=== PATIENT | female | born 1995 | race Caucasian/White ===

== ENCOUNTER 2021-07-05 12:34 | Outpatient (CLI) | payer BC, OTHER, SELFPAY ==
[2021-07-05 14:40] LABS: Basophils Percent Auto 0.3 % (0.2-1.2); Eosinophils Percent Auto 0.6 % (0-4.4); Hematocrit 36.4 % (37.0-47.0); Hemoglobin 12.8 g/dL (12.0-15.0); Immature Granulocyte Absolute 0.04 K/mm3 (0.00-0.031); Immature Granulocyte Percent A 0.6 % (0-0.5); Lymphocytes Absolute Auto 1.41 K/mm3 (0.9-3.2); Lymphocytes Percent Auto 22.2 % (18.3-44.2); Mean Corpuscular HGB Conc 35.2 g/dl (32-36); Mean Corpuscular Hemoglobin 31.1 pg (26-34); Mean Corpuscular Volume 88.6 fl (80-100); Mean Platelet Volume 12.7 fl (7.4-10.4); Monocytes Absolute Auto 0.3 K/mm3 (0.1-0.6); Monocytes Percent Auto 5.4 % (2.6-8.5); Neutrophils Absolute Auto 4.5 K/mm3 (1.3-6.7); Neutrophils Percent Auto 70.9 % (45.5-73.1); Platelet Count Result 178 k/mm3 (150-375); Red Blood Count 4.11 M/mm3 (4.2-5.4); Red Cell Distribution Width 12.6 % (11.5-14.5); White Blood Count 6.3 K/mm3 (4.5-10.0)
[2021-07-05 15:50] LABS: Hepatitis B Surface Antigen Negative (Negative); Rubella IgG Antibody 27.8 IU/ML
[2021-07-05 15:50] LABS: HIV 1/2 Ab P24 Ag Result Negative (Negative)
[2021-07-06 06:02] LABS: Rapid Plasma Reagin Non-Reactive (NonReactive)
[2021-07-07 09:28] LABS: CMV IgG Antibody <0.60 U/mL (<0.60)
[2021-07-16 18:20] LABS: CF Result NEGATIVE (NEGATIVE); Ethnicity NG
[2021-07-26 07:59] LABS: SMA Results Received YES
== END 2021-07-05 12:35 | disposition home or self-care (01) ==
PROVIDERS: Visit Provider Obstetrics & Gynecology
DX: N94.89 Other specified conditions associated with female genital organs and menstrual cycle (principal)
CPT/HCPCS: 36415; 81220; 81329; 84702; 85025; 86592; 86644; 86703; 86747; 86762; 86787; 86850; 86900; 86901; 87086; 87088; 87340; G0432

== ENCOUNTER 2021-09-27 12:04 | Outpatient (CLI) | payer BC, OTHER, SELFPAY ==
[2021-09-27 13:29] LABS: Basophils Percent Auto 0.2 % (0.2-1.2); Eosinophils Absolute Auto 0.1 K/mm3 (0-0.3); Eosinophils Percent Auto 0.7 % (0-4.4); Hematocrit 34.1 % (37.0-47.0); Hemoglobin 11.4 g/dL (12.0-15.0); Immature Granulocyte Absolute 0.03 K/mm3 (0.00-0.031); Immature Granulocyte Percent A 0.3 % (0-0.5); Lymphocytes Absolute Auto 1.56 K/mm3 (0.9-3.2); Lymphocytes Percent Auto 17.4 % (18.3-44.2); Mean Corpuscular HGB Conc 33.4 g/dl (32-36); Mean Corpuscular Hemoglobin 31.8 pg (26-34); Mean Platelet Volume 12.2 fl (7.4-10.4); Monocytes Absolute Auto 0.3 K/mm3 (0.1-0.6); Monocytes Percent Auto 3.6 % (2.6-8.5); Neutrophils Percent Auto 77.8 % (45.5-73.1); Platelet Count Result 171 k/mm3 (150-375); Red Blood Count 3.59 M/mm3 (4.2-5.4); Red Cell Distribution Width 13.1 % (11.5-14.5)
[2021-09-27 13:39] LABS: Glucose 1 Hour PP 50gm Dose 135 mg/dL
[2021-09-27 14:20] LABS: HIV 1/2 Ab P24 Ag Result Negative (Negative)
== END 2021-09-27 12:05 | disposition home or self-care (01) ==
PROVIDERS: Visit Provider Obstetrics & Gynecology
DX: Z34.90 Encounter for supervision of normal pregnancy, unspecified, unspecified trimester (principal); Z3A.00 Weeks of gestation of pregnancy not specified
CPT/HCPCS: 36415; 82947; 85025; 86703; G0432

== ENCOUNTER 2022-01-10 05:14 | Inpatient (IN) | payer BC, OTHER, SELFPAY ==
[2022-01-10] VITALS (89 sets, daily range): BP systolic 94–125; BP diastolic 48–82; PULSE 62–132; RESP 16; TEMP 36.4–36.9; O2SAT 93–100; BMI 27.4
--- NOTE | 2022-01-10 05:44 | LDADM ---
This patient, Karina Echevarria, was admitted to Labor/Delivery/Recovery 104 on 01/10/22 at 05:14. Plans for labor, pain management and were discussed with patient. Patient/family oriented to hospital policies and general routines including ID bracelet, bed and alarms, visiting hours, pain management, procedures, bathroom and other care routines, personal items, smoking policy, room service/diet and guest tray routines, security routines, and visiting hours. Patient/Family are encouraged to report perceived risks to care and to ask questions if they do not understand what they are told or what they should do. See OBIX for further documentation.
[2022-01-10 06:17] LABS: Basophils Percent Auto 0.2 % (0.2-1.2); Eosinophils Absolute Auto 0.1 K/mm3 (0-0.3); Eosinophils Percent Auto 0.8 % (0-4.4); Hemoglobin 12.5 g/dL (12.0-15.0); Immature Granulocyte Absolute 0.04 K/mm3 (0.00-0.031); Immature Granulocyte Percent A 0.4 % (0-0.5); Lymphocytes Absolute Auto 1.92 K/mm3 (0.9-3.2); Lymphocytes Percent Auto 20.8 % (18.3-44.2); Mean Corpuscular HGB Conc 34.7 g/dl (32-36); Mean Corpuscular Hemoglobin 31.6 pg (26-34); Mean Corpuscular Volume 91.1 fl (80-100); Mean Platelet Volume 12.7 fl (7.4-10.4); Monocytes Absolute Auto 0.8 K/mm3 (0.1-0.6); Monocytes Percent Auto 8.1 % (2.6-8.5); Neutrophils Absolute Auto 6.4 K/mm3 (1.3-6.7); Neutrophils Percent Auto 69.7 % (45.5-73.1); Platelet Count Result 141 k/mm3 (150-375); Red Blood Count 3.95 M/mm3 (4.2-5.4); Red Cell Distribution Width 12.9 % (11.5-14.5); White Blood Count 9.2 K/mm3 (4.5-10.0)
[2022-01-10] MEDS: LACTATED RINGERS 1,000 ML 125 ML IV CONT ×2 (06:20→12:21)
[2022-01-10] MEDS: OXYTOCIN 30 UNITS/NS 500 ML 30 UNITS/500 ML BAG IV CONT (06:25)
[2022-01-10 07:11] LABS: HIV 1/2 Ab P24 Ag Result Negative (Negative)
--- NOTE | 2022-01-10 07:20 | WPDANESEPP ---
Anes - Eval Pre Procedure Procedure: LAbor epidural Date/Time: 01/10/22 07:20 Surgeon: Deep Preop Diagnosis: Abd pain with contractions Pre Op Diagnosis: Induction of Labor Patient Data Age: 26 Gender: F Height: 1.7 m Weight: 79.55 kg Last Vital Signs Temp 97.9 F 01/10/22 05:40 Pulse 68 01/10/22 07:00 BP 98/60 L 01/10/22 07:00 Allergies Allergy/AdvReac Type Severity Reaction Status Date / Time No Known Allergies Allergy Verified 01/10/22 06:18 Home Medications Medication Instructions Recorded Confirmed Type vitamins-iron fumarate 65 1 tablet PO DAILY 06/25/21 01/10/22 History mg iron-folic acid 1 mg tablet polyethylene glycol 3350 17 17 g PO DAILY 09/27/21 12/22/21 History gram/dose oral powder (Miralax) wheat dextrin (with aspartame) 3 ea PO 09/27/21 12/22/21 History gram/4.6 gram oral powder ferrous sulfate 325 mg (65 mg 325 mg PO DAILY 10/26/21 01/10/22 History iron) tablet,delayed release Laboratory Tests 01/10/22 01/10/22 01/10/22 05:41 05:41 05:41 WBC 9.2 K/mm3 K/mm3 (4.5-10.0) RBC 3.95 M/mm3 L M/mm3 (4.2-5.4) Hgb 12.5 g/dL g/dL (12.0-15.0) Hct 36.0 % L % (37.0-47.0) MCV 91.1 fl fl (80-100) MCH 31.6 pg pg (26-34) MCHC 34.7 g/dl g/dl (32-36) RDW 12.9 % % (11.5-14.5) Plt Count 141 k/mm3 L k/mm3 (150-375) MPV 12.7 fl H fl (7.4-10.4) Immature Gran % (Auto) 0.4 % % (0-0.5) Neut % (Auto) 69.7 % % (45.5-73.1) Lymph % (Auto) 20.8 % % (18.3-44.2) Rich % (Auto) 8.1 % % (2.6-8.5) Eos % (Auto) 0.8 % % (0-4.4) Baso % (Auto) 0.2 % % (0.2-1.2) Lymph # (Auto) 1.92 K/mm3 K/mm3 (0.9-3.2) Rich # (Auto) 0.8 K/mm3 H K/mm3 (0.1-0.6) Eos # (Auto) 0.1 K/mm3 K/mm3 (0-0.3) Baso # (Auto) 0.0 K/mm3 K/mm3 (0.0-0.1) Abs Immat Gran (auto) 0.04 K/mm3 H K/mm3 (0.00-0.031) Absolute Neuts (auto) 6.4 K/mm3 K/mm3 (1.3-6.7) Absolute Nucleated RBC 0.0 K/mm3 K/mm3 (0.0-0.012) Nucleated RBC % 0.0 % % (0.0-0.2) RPR Pending HIV 1&2 Ab/P24 Ag 4thGn Negative (Negative) Patient hx anesthesia problems: none Family hx anesthesia problems: none Results Review: All pre-operative results and documents have been reviewed as part of the pre-operative evaluation. 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
--- NOTE | 2022-01-10 07:46 | PM.IMHP ---
H&P: HPI History of Present Illness Date/Time: 01/10/22 07:46 Chief Complaint: induction of labor Narrative: Jessica is a 26yo @ 39.3wks who presents for elective induction of labor. She reports irregular ctxs. No vaginal bleeding or leakage of fluid. Good movement. She has had regular care and ultrasounds showing normal size baby w/ EFW 40%ile. Her is complicated by: - H/o LGA baby leading to large laceration (op report says 2nd degree, with right sided vaginal wall lac repaired in OR) Review of Systems Review of Systems: All systems reviewed & are unremarkable except as noted in HPI and below PMFSH Past Medical History Medical History Overweight (BMI 25.0-29.9) and not yet delivered Suppression of menstruation Surgical History Surgical History History of ankle surgery [place] teeth extracted Family History Family History Grandparent Breast cancer maternal grand mother / maternal aunt Social History Social History Smoking status: Never smoker Alcohol intake: never Substance use: never Substance use type: does not use Additional living arrangements comments: spouse 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 Gender identity (if verbalized by the patient): Female Sexual Orientation (if Verbalized by the Patient): Straight or Heterosexual Spiritual care concerns: No Meds Home Medications and Allergies Home Medications Medication Instructions Recorded Confirmed Type vitamins-iron fumarate 65 1 tablet PO DAILY 06/25/21 01/10/22 History mg iron-folic acid 1 mg tablet polyethylene glycol 3350 17 17 g PO DAILY 09/27/21 12/22/21 History gram/dose oral powder (Miralax) wheat dextrin (with aspartame) 3 ea PO 09/27/21 12/22/21 History gram/4.6 gram oral powder ferrous sulfate 325 mg (65 mg 325 mg PO DAILY 10/26/21 01/10/22 History iron) tablet,delayed release Allergies Allergy/AdvReac Type Severity Reaction Status Date / Time No Known Allergies Allergy Verified 01/10/22 06:18 Vital Signs Vital Signs - 24 hr 01/10/22 05:39 01/10/22 06:10 01/10/22 05:40 Temperature 97.9 F Pulse Rate 75 87 Blood Pressure 115/63 124/71 01/10/22 06:31 01/10/22 07:00 01/10/22 07:30 Temperature Pulse Rate 77 68 76 Blood Pressure 104/63 98/60 L 102/55 L Exam Const: General: cooperative, healthy appearing, comfortable and no acute distress Resp: Effort & Inspection: normal respiratory effort Cardio: Rate: regular rate GI: GI Palp: No abdominal tenderness and Yes Soft to palpation : Other: FHT's: 130's/mod ravi/ + accels/ no decels - cat 1 TOCO: ctx's q 3min Cervix: 08/25/-3 Presentation: cephalic Membranes: intact, GBS neg Skin: General skin exam: normal color Neuro: General: patient oriented x3 Extrem: General: normal to inspection Psych: Appearance: grossly normal Affect: normal affect Attitude: cooperative H&P: Results Labs Labs: Short CBC 01/10/22 Range/Units 05:41 WBC 9.2 (4.5-10.0) K/mm3 Hgb 12.5 (12.0-15.0) g/dL Hct 36.0 L (37.0-47.0) % Plt Count 141 L (150-375) k/mm3 Assessment and Plan Assessment and plan (1) Encounter for induction of labor: Code(s): Z34.90 - Encounter for supervision of normal , unspecified, unspecified trimester Status: Acute Plan - Admitted to L&D for elective IOL - Pitocin per protocol - Continuous monitoring; currently reassuring - Anesthesia consult PRN pain - GBS negative
[2022-01-10 07:51] LABS: Rapid Plasma Reagin Non-Reactive (NonReactive)
--- NOTE | 2022-01-10 07:52 | WPDHPUPDATE1 ---
History and Physical Update Update Date/Time: 01/10/22 07:52 History and Physical has been reviewed, including an updated exam of the patient. There are NO changes in the patient's condition. Risks, benefits, and alternatives have been discussed and questions answered. Patient agrees to proceed with procedure.
--- NOTE | 2022-01-10 12:20 | PM.OBPNLAB ---
Pain Control Date/time seen: 01/10/22 12:20 Pain control: tolerating well (wanting epidural soon) Pelvic Exam Dilation (cm): 4 (.5) Effacement (%): 70 station: -2 Amniotic membrane status: Ruptured (AROM, clear 1220) Contractions Monitor mode: External Contraction frequency: 3 Contraction pattern: Regular Status status: Category l Assessment and Plan Pitocin rate (mU/min): 10 Assessment: induction ongoing Plan: continuous present management
--- NOTE | 2022-01-10 15:23 | P.PCNOB_ITS ---
OB - Delivery Note Procedure Delivery date: 01/10/22 Events: Elective Induction of Labor Induction method: Per Pitocin Protocol Delivery augmentation: Rupture of Membranes Delivery monitor: External FHT and External Uterine Route of delivery: Laceration Description: Perineal - 1st Degree Delivery repair: vicryl Quantitative Blood Loss (ml): 350 Anesthesia type: Epidural Disposition: Floor [place] Baby Date of : 01/10/22 Time of : 15:04 Weeks of gestation at delivery: 39 (.3) Infant gender: Male Weight (pounds): 8 Weight (ounces): 6 presentation: vertex position: Left Occiput Transverse Placenta delivery description: Expressed Cord Vessel Description: 3 Vessels score one minute: 9 score five minutes: 9 Narrative: Karina progressed to complete dilation with strong desire to push. She pushed for three contractions and delivered the head over intact perineum. She easily delivered the 's shoulders and body without complications. The infant was immediately placed skin to skin and had spontaneous cry. His mouth and nose were bulb suction. Delayed cord clamping was performed. The umbilical cord was then clamped and cut. A segment of the cord was collected for cord gases. The remaining cord blood was collected for typing. With Pitocin running and gentle downward traction on the cord, the placenta delivered without complications. Brisk bleeding was initially noted but bimanual massage revealed good tone and minimal bleeding was then noted. She was examined and a first- degree perineal laceration was noted. A figure of 8 using 2-0 Vicryl was placed and the laceration was hemostatic. Good tone with minimal bleeding remained. Sponge, lap, instrument, and needle counts were correct at the end the procedure. Mom and baby were left bonding in the birthing suite in stable condition. [facility] Delivery Billing Delivery Delivery: Delivery Charge
[2022-01-10] MEDS: OXYTOCIN 30 UNITS/NS 500 ML 30 UNITS/500 ML BAG 125 UNITS IV CONT (15:36)
[2022-01-10] MEDS: BENZOCAINE 20% AER SPR (*SP) 56 GM CAN 1 SPRAY TOPICAL (16:28)
[2022-01-10] MEDS: IBUPROFEN 600 MG TABLET PO (16:28)
[2022-01-10] MEDS: WITCH HAZEL 40 PADS 1 PAD TOPICAL (16:28)
--- NOTE | 2022-01-10 18:16 | PC.NURSE ---
Patient transferred to post room #284 per wheelchair from labor and delivery. Support person present. Oriented to unit, room, information board, rooming in, admission packet and security measures. Patient verbalizes understanding.
[2022-01-11 00:20] VITALS: BP 99/43; PULSE 88; RESP 16; TEMP 36.4
[2022-01-11] MEDS: DIBUCAINE 1% OINTMENT 30 GM TUBE 1 APPLIC TOPICAL (00:20)
[2022-01-11] MEDS: IBUPROFEN 600 MG TABLET PO ×2 (00:21→08:20)
[2022-01-11 04:25] VITALS: BP 96/42; PULSE 74; RESP 16; TEMP 36
[2022-01-11 04:56] LABS: Hematocrit 31.4 % (37.0-47.0); Hemoglobin 10.7 g/dL (12.0-15.0)
--- NOTE | 2022-01-11 07:43 | P.PNOB_ITS ---
OB - PN: Subj Subjective Date/time seen: 01/11/22 07:13 Narrative: PPD#1 Karina reports doing well today. Her bleeding is agent broker. Her pain is controlled. She is tolerating regular diet, voiding, passing gas, and ambulating without issues. She has a hemorrhoid that is bothering her. She is breast feeding. She would like her son circumcised. OB - PN: Obj Data Labs CBC & Chem 7: 01/11/22 04:25 Labs: Laboratory Results - last 24 hr 01/10/22 01/10/22 01/11/22 05:41 09:31 04:25 Hgb 10.7 L Hct 31.4 L RPR Non-reactive Blood Type B Positive Antibody Screen Negative OB - PN A/P Assessment and Plan (1) Normal vaginal delivery of second : Code(s): O80 - Encounter for full-term uncomplicated delivery Status: Acute Plan day: 1 Plan: routine care and discharge home (today) Comments: - Pelvic rest; take meds as prescribed - ER return precautions: fever, n/v/abd pain, bleeding, HTN Time Spent With Patient Time: Total time spent is greater than 50% in coordination of care (as documented) at patient's floor/unit and/or counseling patient: Review of Systems Constitutional: Constitutional: Denies chills, Denies fever(s) and Denies headache(s) Eyes: Eyes: Denies change in vision ENT: Denies dizziness and Denies headache(s) Cardiovascular: Cardiovascular: Denies chest pain, Denies palpitations and Denies dyspnea Respiratory: Respiratory: Denies cough and Denies dyspnea Gastrointestinal: Gastrointestinal: Denies nausea and Denies vomiting Neurologic: Denies dizziness and Denies headache(s) Endocrine: Endocrine: Denies palpitations Exam Const: General: cooperative, comfortable and no acute distress Orientation/consciousness: patient oriented x3 Resp: Effort & Inspection: normal respiratory effort Auscultation: clear to auscultation bilaterally Cardio: Rate: regular rate GI: Inspection: non-distended GI Palp: No abdominal tenderness and Yes Soft to palpation Auscultation: normal bowel sounds : Other: fundus firm Skin: General skin exam: normal color Neuro: General: patient oriented x3 Extrem: General: normal to inspection Psych: Appearance: grossly normal Affect: normal affect Attitude: cooperative
[2022-01-11 08:15] VITALS: BP 103/41; PULSE 86; RESP 18; TEMP 36.9; O2SAT 100
[2022-01-11] MEDS: MULTIVIT/MIN/PREN/FOL AC/IRON TABLET 1 TAB PO (08:20)
--- NOTE | 2022-01-11 08:41 | WPDANLDPN2 ---
Anes-Prog Note L&D Date/Time: 01/11/22 08:41 Comfortable throughout: labor and delivery Neuraxial method: epidural Epidural/Spinal procedure site: clean & non-tender Neuro status: Neuro function grossly intact. Cardiovascular status: normal Respiratory status: normal Airway patency: baseline Mental status: baseline Post-Op hydration status: normal Vital Signs: Last Vital Signs Temp 36.0 C L 01/11/22 04:25 Pulse 74 01/11/22 04:25 Resp 16 01/11/22 04:25 BP 96/42 L 01/11/22 04:25 Pulse Ox 100 01/10/22 15:04 O2 Del Method Room Air 01/10/22 19:45 Pain score (VAS): 10 I/O: Intake & Output 01/10/22 01/11/22 01/11/22 23:59 07:59 15:59 Intake Total 500 Balance 500 Post-procedural complaints: none Patient feedback: Patient satisfied with anesthetic care.
[2022-01-11 11:27] VITALS: BP 105/55; PULSE 79; RESP 16; TEMP 36.9; O2SAT 100
--- NOTE | 2022-01-11 14:44 | PC.NURSE ---
[id number] Introductions were made, then consulted with patient to assess needs related to . Mother led the conversation with her?plans to feed?her infant, the?experience so far, and states she has breastfed her last baby for 17 months but is having difficulty waking her son to eat. Resources provided for inpatient and outpatient services using a resource guide and mom/baby guide. Mother voiced understanding of information and is requesting assistance. was circumcised this morning and received medication for pain.Encouraged understanding of the benefits of skin to skin unwrapping and placing vertically on her chest, stimulating with massage touch, laying infant on her lap, then utilizing touch, talk, and stimulation for wakefulness. Mother is familiar with education and has not been able to get to respond eagerly to breastfeed. Reviewed responsive feeding, how to watch for early feeding signs, frequency of feeding on demand about every 8-12 times in 24 hours (every 2-3 hours), milk production, duration of feeding, signs of adequate intake/output and how to record on the feeding sheet. Reviewed positioning and ear, shoulder, hip alignment, supporting the breast, asymmetrical latch (off-center), and leading with the chin with a big open side gape. Education given on hand expressing and mother demonstrates the information and feeds her infant 5 ml from a spoon. [id number] Infant latched optimally to the left breast in a modified cross cradle position that works for mother and . Education given to mother of how to visualize suck/swallow ratios and drinking at the breast. was able to maintain latch without discomfort to mother. Nipple care reviewed with optimal latch and good positioning. Resources used to facilitate learning were used with the visual handouts and mom/baby guide. Mother received spoons, syringes, and medication cups for use if is sleepy and mother needs to hand express to encourage infant to breastfeed. Mother demonstrates working with her well and is confident in her infant without pain. Mother voiced understanding of responsive feedings, stimulating with skin to skin, hand expressed colostrum, touch, talking to to encourage if it has been 2 -3 hours since the start of the last , to call if does not latch or there is discomfort with . Reported to the primary RN.
[2022-01-12 08:50] VITALS: BP 112/67; PULSE 83; RESP 16; TEMP 37.1; O2SAT 100
--- NOTE | 2022-01-12 11:28 | PM.OBDSVD ---
DS: Admitting Diagnosis Discharge Date 01/11/22 Admitting Diagnosis induction of labor DS: Discharge Diagnosis Discharge Diagnosis (1) Normal vaginal delivery of second : Code(s): O80 - Encounter for full-term uncomplicated delivery Status: Acute OB - DS: Summary OB Procedures : Ultrasound OB Procedures Intrapartum: Spontaneous Vag Delivery OB Procedures: : None Peripartum Data Infant Delivery Method: Natural Vaginal Laceration Description: Perineal - 1st Degree complications: none 1: Gender: Male Disposition of : home Status at Discharge Functional status at discharge: independent ambulation Overall status at discharge: patient is back to baseline Time Spent with Patient Time attestation: Total time spent providing and/or coordinating discharge services: Time spent: Less than 30 minutes Exam Const: General: cooperative, comfortable and no acute distress Orientation/consciousness: patient oriented x3 Resp: Effort & Inspection: normal respiratory effort Auscultation: clear to auscultation bilaterally Cardio: Rate: regular rate GI: Inspection: non-distended GI Palp: No abdominal tenderness and Yes Soft to palpation Auscultation: normal bowel sounds : Other: fundus firm Skin: General skin exam: normal color Neuro: General: patient oriented x3 Extrem: General: normal to inspection Psych: Appearance: grossly normal Affect: normal affect Attitude: cooperative Discharge Plan Discharge Attending physician on discharge: Geena Adame Consulting providers: Salvador Garzon ; Adri Vaz Discharging Clinician: Geena Adame Anticipated Discharge Date/Time: 01/11/22 16:00 Patient Disposition: Home, Self-Care Activity: may shower and pelvic rest Diet: regular Discharge Instructions: Education: Mom and Baby Guide Given to: Mother Follow-Up: Call your delivering provider's office for an appointment to be seen in: 4 Weeks Mom and baby should come to the [facility] for the follow-up appointment. Appointment Date/Time: January 12, 2022 at 9:00 am What to expect at your follow-up visit: Physical Assessment Call [phone] if you are unable to keep your appointment time. BREAST CARE: * Wear a snug supportive bra. * For engorgement discomfort: Breast Feeding: * Apply warm moist washcloths * Express milk as needed to relieve engorgement * Wear loose clothing * For sore nipples: * Identify correct latch-on * Apply warm moist washcloths before and after nursing * Air dry nipples after nursing * May apply Lansinoh cream to nipples EPISIOTOMY/PERINEAL CARE: * Until bleeding stops, use your cata bottle after urinating * Change your pad frequently throughout the day * You may take sitz baths several times a day (fill your bathtub with warm water and soak for 20 minutes.) Do NOT bathe in the water * No tub baths until seen by your physician - You may shower ACTIVITY: * Rest as much as possible. * Do not exercise or lift anything heavier than your baby (such as laundry or other children.) * Avoid stairs or driving as much as possible. * Do not put anything into the vagina. No douching, tampons, or sexual activity until seen by physician. NOTIFY PHYSICIAN IF YOU HAVE ANY QUESTIONS OR IF ANY OF THE FOLLOWING SYMPTOMS OCCUR: * If your episiotomy or incision becomes red, swollen, or more painful than what you have experienced in the hospital. * If your vaginal bleeding becomes foul smelling. * If your vaginal bleeding becomes more heavy than a period or if your bleeding changes from pink to bright red. However, you may pass an occasional walnut-sized clot once or twice for the first week . * If you experience a sharp, shooting pain in you calves. * If you discover a hard, reddened area on you
== END 2022-01-11 17:00 | disposition home or self-care (01) | DRG 794 ==
LOC: ANHLDR 05:17 → ANHOB2 18:41
PROVIDERS: Admitting Provider Obstetrics & Gynecology; Visit Provider Obstetrics & Gynecology
DX: P08.1 Other heavy for gestational age newborn (principal); Z37.0 Single live birth; Z3A.39 39 weeks gestation of pregnancy; O70.0 First degree perineal laceration during delivery
CPT/HCPCS: 36415; 85014; 85018; 85025; 86592; 86703; 86850; 86900; 86901; A9270; G0432; J2590; J2795; J7120

== ENCOUNTER 2023-08-23 15:15 | Outpatient (CLI) | payer OTHER, SELFPAY ==
[2023-08-23 15:43] LABS: Basophils Percent Auto 0.3 % (0.2-1.2); Eosinophils Percent Auto 0.5 % (0-4.4); Hematocrit 37.6 % (37.0-47.0); Immature Granulocyte Absolute 0.02 K/mm3 (0.00-0.031); Immature Granulocyte Percent A 0.3 % (0-0.5); Lymphocytes Percent Auto 24.6 % (18.3-44.2); Mean Corpuscular HGB Conc 34.6 g/dl (32-36); Mean Corpuscular Hemoglobin 30.3 pg (26-34); Mean Corpuscular Volume 87.6 fl (80-100); Mean Platelet Volume 12.4 fl (7.4-10.4); Monocytes Absolute Auto 0.4 K/mm3 (0.1-0.6); Monocytes Percent Auto 5.7 % (2.6-8.5); Neutrophils Percent Auto 68.6 % (45.5-73.1); Platelet Count Result 177 k/mm3 (150-375); Red Blood Count 4.29 M/mm3 (4.2-5.4); White Blood Count 7.3 K/mm3 (4.5-10.0)
[2023-08-23 16:41] LABS: HIV 1/2 Ab P24 Ag Result Negative (Negative)
[2023-08-23 18:14] LABS: Hepatitis B Surface Antigen Negative (Negative); Rubella IgG Antibody 16.9 IU/ML
[2023-08-24 08:39] LABS: Rapid Plasma Reagin Non-Reactive (NonReactive)
[2023-08-25 18:33] LABS: CMV IgG Antibody <0.60 U/mL (<0.60)
== END 2023-08-23 15:16 | disposition home or self-care (01) ==
LOC: ANHLAB 15:15
PROVIDERS: Visit Provider Obstetrics & Gynecology
DX: N91.2 Amenorrhea, unspecified (principal)
CPT/HCPCS: 36415; 84702; 85025; 86592; 86644; 86703; 86747; 86762; 86787; 86850; 86900; 86901; 87086; 87088; 87340; G0432